=== PATIENT | male | born 1985 | race Caucasian/White ===

== ENCOUNTER 2016-11-27 01:30 | Emergency (ER) | payer OTHER, BC ==
[~2016-11-27] VITALS: Ht 167.6 cm; Wt 102.0 kg
[~2016-11-27 01:30] MED LIST: CIPROFLOXACIN500 M1 PO; HYDROCODON-ACE1 EAC7 PO; METRONIDAZOLE500 MG PO; MOTRIN800 MG PO; PERCOCET 5/31 TABLET PO; SIMVASTATIN20 MG PO; TRAMADOL HCL50 MG PO; TYLENOL EXTRA500 MG PO; TYLENOL REGULA325 MG PO; ZOFRAN8 MG PO; [UNRECOGNIZED DRUG - REMARK] TP; [UNRECOGNIZED DRUG - REMARK] TP
[2016-11-27 02:20] VITALS: BP 157/93
== END 2016-11-27 02:26 | disposition home or self-care (01) ==
LOC: EME 01:30
DX: S91.101A Unspecified open wound of right great toe without damage to nail, initial encounter (principal); X58.XXXA Exposure to other specified factors, initial encounter; Y93.F9 Activity, other caregiving
CPT/HCPCS: 73660; 99281; 99283

== ENCOUNTER 2017-04-14 04:23 | Emergency (ER) | payer OTHER ==
[~2017-04-14] VITALS: Ht 167.6 cm; Wt 98.5 kg
[2017-04-14 06:29] VITALS: BP 131/83
== END 2017-04-14 06:30 | disposition home or self-care (01) ==
LOC: EME 04:23
DX: S66.912A Strain of unspecified muscle, fascia and tendon at wrist and hand level, left hand, initial encounter (principal); X58.XXXA Exposure to other specified factors, initial encounter; Y93.F9 Activity, other caregiving; Y92.531 Health care provider office as the place of occurrence of the external cause; Y99.0 Civilian activity done for income or pay
CPT/HCPCS: 73110; 99281; 99283

== ENCOUNTER 2017-06-05 05:44 | Inpatient (IN) | payer OTHER ==
[~2017-06-05] VITALS: Ht 170.2 cm; Wt 100.7 kg
[2017-06-05 06:10] LABS: HEMATOCRIT 47.5 % (38.0-50.0); MCHC 33.1 G/DL (30.0-36.0); MCV 84.8 FL (86-99); MEAN PLAT.VOLUME 10.3 uM^3 (9.0-12.4); PLATELET COUNT 216 K/uL (156-360); RBC DIS.WIDTH-CV 13.2 % (11.8-14.6); RBC DIS.WIDTH-SD 41.3 % (39-53); WHITE BLOOD COUNT 7.4 K/uL (4.1-10.2)
[2017-06-05 06:24] LABS: CHLORIDE 105 mEq/L (99-109); SODIUM 140 mEq/L (136-147)
[2017-06-05 06:26] LABS: GLUCOSE 96 mg/dL (70-99)
[2017-06-05 06:27] LABS: ANION GAP 11 MEQ/L (2-14)
[2017-06-05 06:28] LABS: TOTAL BILIRUBIN 0.7 mg/dL (0.0-1.0)
[2017-06-05 06:29] LABS: ALKALINE PHOSPHATASE 79 IU/L (3-129)
[2017-06-05 06:30] LABS: GFR ESTIMATE (CALCULATED) > 59 mL/min/
[2017-06-05 06:31] LABS: UREA NITROGEN (BUN) 10 mg/dL (9-23)
[2017-06-05 06:33] LABS: LIPASE 35 U/L (1.0-51.0)
[2017-06-05 07:59] LABS: ADD MIUA? NO; BILIRUBIN NEGATIVE; BLOOD NEGATIVE; GLUCOSE (STRIP) NEGATIVE; KETONES NEGATIVE; LEUKOCYTES NEGATIVE; NITRITE NEGATIVE; PROTEIN (STRIP) NEGATIVE; SPECIFIC GRAVITY 1.009 (1.000-1.030); UCUL ADDED? NO; UROBILINOGEN 0.2 MG/DL (0.2-1.0)
[2017-06-05 08:00] LABS: COLOR LT YELLOW ((YELLOW))
[2017-06-05 16:31] VITALS: BP 128/58
[2017-06-05 19:57] VITALS: BP 129/82
[2017-06-05 23:41] VITALS: BP 121/71
[2017-06-06 03:25] VITALS: BP 119/73
[2017-06-06 07:35] VITALS: BP 105/64
[2017-06-06 10:50] VITALS: BP 110/55
[2017-06-06 16:06] VITALS: BP 139/66
[2017-06-06 20:20] VITALS: BP 105/60
[2017-06-07 00:24] VITALS: BP 104/55
[2017-06-07 06:03] VITALS: BP 123/78
[2017-06-07 07:52] VITALS: BP 116/68
[2017-06-07 08:43] VITALS: BP 130/66
[2017-06-07 21:00] VITALS: BP 140/80
[2017-06-08 00:05] VITALS: BP 133/83
[2017-06-08 05:52] LABS: EOSINOPHIL (%) 0.2 % (0-5); HEMATOCRIT 44.5 % (38.0-50.0); IMMATURE GRANULOCYTE (%) 0.4 % (0.0-0.7); LYMPHOCYTE COUNT 0.8 K/uL (1.0-2.8); MCH 27.5 PG (29.0-34.0); MCHC 32.1 G/DL (30.0-36.0); MCV 85.6 FL (86-99); MEAN PLAT.VOLUME 9.9 uM^3 (9.0-12.4); MONOCYTE COUNT 0.8 K/uL (0-0.8); NEUTROPHIL (%) 83.1 % (45-76); PLATELET COUNT 186 K/uL (156-360); RBC DIS.WIDTH-CV 13.1 % (11.8-14.6); RBC DIS.WIDTH-SD 40.8 % (39-53); WHITE BLOOD COUNT 9.6 K/uL (4.1-10.2)
[2017-06-08 06:18] LABS: ALKALINE PHOSPHATASE 53 IU/L (3-129); ANION GAP 10 MEQ/L (2-14); CHLORIDE 100 MEQ/L (99-109); GFR ESTIMATE (CALCULATED) > 59 mL/min/; GLUCOSE 85 mg/dL (70-99); MAGNESIUM 1.9 mg/dl (1.3-2.7); POTASSIUM 4.5 MEQ/L (3.7-5.4); SAMPLE HEMOLYSIS CHECK 0; SAMPLE ICTERIC CHECK 0; SAMPLE LIPEMIA CHECK 0; SODIUM 139 MEQ/L (136-147); UREA NITROGEN (BUN) 6 mg/dL (9-23)
[2017-06-08 07:08] VITALS: BP 123/74
[2017-06-08 11:06] VITALS: BP 113/71
[2017-06-08 15:40] VITALS: BP 132/79
[2017-06-08 19:28] VITALS: BP 129/68
[2017-06-09 00:12] VITALS: BP 120/58
[2017-06-09 05:04] VITALS: BP 130/70
[2017-06-09 07:21] VITALS: BP 135/89
[2017-06-09 12:59] LABS: HEMATOCRIT 41.4 % (38.0-50.0); MCH 28.2 PG (29.0-34.0); MCHC 33.1 G/DL (30.0-36.0); MCV 85.4 FL (86-99); MEAN PLAT.VOLUME 10.4 uM^3 (9.0-12.4); PLATELET COUNT 173 K/uL (156-360); RBC DIS.WIDTH-SD 40.4 % (39-53); RED BLOOD COUNT 4.85 M/uL (4.00-5.50); WHITE BLOOD COUNT 4.7 K/uL (4.1-10.2)
[2017-06-09 13:35] LABS: ALKALINE PHOSPHATASE 48 IU/L (3-129); ANION GAP 9 MEQ/L (2-14); CHLORIDE 96 MEQ/L (99-109); GFR ESTIMATE (CALCULATED) > 59 mL/min/; POTASSIUM 4.3 MEQ/L (3.7-5.4); SAMPLE HEMOLYSIS CHECK 0; SAMPLE ICTERIC CHECK 1; SAMPLE LIPEMIA CHECK 0; SODIUM 135 MEQ/L (136-147); UREA NITROGEN (BUN) 5 mg/dL (9-23)
[2017-06-09 13:36] LABS: GLUCOSE 117 mg/dL (70-99)
[2017-06-09 14:04] LABS: TOTAL BILIRUBIN 4.1 MG/DL (0.0-1.0)
[2017-06-09 16:11] VITALS: BP 135/63
[2017-06-09 21:36] VITALS: BP 122/79
[2017-06-10 03:11] VITALS: BP 127/55
[2017-06-10 07:14] LABS: TROP-I INTERPRETATION NEGATIVE; TROPONIN-I < 0.01 ng/mL (0.0-0.30)
[2017-06-10 08:00] VITALS: BP 159/70
[2017-06-10] MEDS ORDERED: ZOFRAN4 MG PO (08:23)
[2017-06-10] MEDS ORDERED: PERCOCET 5/31 TABLET PO (08:23)
[2017-06-10 11:26] VITALS: BP 124/70
[2017-06-10 13:59] LABS: MCH 28.9 PG (29.0-34.0); MCHC 34.3 G/DL (30.0-36.0); MCV 84.2 FL (86-99); MEAN PLAT.VOLUME 10.7 uM^3 (9.0-12.4); PLATELET COUNT 203 K/uL (156-360); RBC DIS.WIDTH-CV 13.2 % (11.8-14.6); RBC DIS.WIDTH-SD 40.5 % (39-53); RED BLOOD COUNT 4.99 M/uL (4.00-5.50)
[2017-06-10 14:18] LABS: ANION GAP 12 MEQ/L (2-14); CHLORIDE 95 MEQ/L (99-109); POTASSIUM 3.6 MEQ/L (3.7-5.4); SAMPLE HEMOLYSIS CHECK 0; SAMPLE ICTERIC CHECK 1; SAMPLE LIPEMIA CHECK 0; SODIUM 135 MEQ/L (136-147)
[2017-06-10 14:24] LABS: GFR ESTIMATE (CALCULATED) > 59 mL/min/; GLUCOSE 95 mg/dL (70-99); UREA NITROGEN (BUN) 9 mg/dL (9-23)
[2017-06-10 14:27] LABS: ABS NEUTROPHIL COUNT 3.6; BAND NEUTROPHILS 33.9 % (0-8.0); EOSINOPHIL ABS CT 0.1; EOSINOPHILS 1.7 % (0-5.0); INSTRUMENT ABS NEUTROPHIL CT 3.2 K/uL; LYMPHOCYTES 19.1 % (15.0-45.0); PLAT.SUFFICIENCY ADEQUATE; SEG.NEUTROPHILS 38.3 % (46.0-76.0); SMUDGE CELLS 0.9
[2017-06-10 15:25] VITALS: BP 134/85
== END 2017-06-10 18:03 | disposition home or self-care (01) | DRG 337 ==
LOC: EME 05:44 → 5EAST 12:54 → EDOF 12:54 → ENRESERV 13:13 → EDOF 13:14 → ENRESERV 14:16 → 5EAST 15:27 → ENPENDDIS 06-10 → 5EAST 06-10 18:03
PROVIDERS: Internal Medicine Cardiovascular Disease; Physician Assistant Surgical; Surgery
PROC: 0DNE4ZZ Release Large Intestine, Percutaneous Endoscopic Approach (ICD-10-PCS; principal; 2017-06-07)
PROC: 0DNS4ZZ (ICD-10-PCS; principal; 2017-06-07)
PROC: 0WUF4JZ Supplement Abdominal Wall with Synthetic Substitute, Percutaneous Endoscopic Approach (ICD-10-PCS; principal; 2017-06-07)
PROC: 0DN84ZZ Release Small Intestine, Percutaneous Endoscopic Approach (ICD-10-PCS; principal; 2017-06-07)
DX: K43.0 Incisional hernia with obstruction, without gangrene (principal); R00.0 Tachycardia, unspecified; K66.0 Peritoneal adhesions (postprocedural) (postinfection); F17.200 Nicotine dependence, unspecified, uncomplicated; E66.3 Overweight; Z68.34 Body mass index [BMI] 34.0-34.9, adult
CPT/HCPCS: 71275; 74177; 80048; 80053; 81003; 83690; 83735; 84100; 84484; 85025; 85027; 93005; 94799; 99281; 99285; C1781; J0690; J1170; J1650; J2250; J2270; J2405; J3010; J7030; J7120; S0020

== ENCOUNTER 2017-06-12 21:14 | Inpatient (IN) | payer OTHER ==
[~2017-06-12] VITALS: Ht 170.2 cm; Wt 96.7 kg
[~2017-06-12 21:14] MED LIST changes: +ZOFRAN4 MG PO
[2017-06-12 22:45] LABS: HEMATOCRIT 47.9 % (38.0-50.0); MCH 27.9 PG (29.0-34.0); MCHC 33.8 G/DL (30.0-36.0); MCV 82.6 FL (86-99); RBC DIS.WIDTH-CV 13.4 % (11.8-14.6); RBC DIS.WIDTH-SD 40.3 % (39-53); WHITE BLOOD COUNT 11.2 K/uL (4.1-10.2)
[2017-06-12 22:52] LABS: CHLORIDE 91 mEq/L (99-109); POTASSIUM 3.2 mEq/L (3.7-5.4); SODIUM 137 mEq/L (136-147)
[2017-06-12 22:54] LABS: GLUCOSE 108 mg/dL (70-99)
[2017-06-12 22:55] LABS: ANION GAP 17 MEQ/L (2-14)
[2017-06-12 22:56] LABS: TOTAL BILIRUBIN 1.8 mg/dL (0.0-1.0)
[2017-06-12 22:57] LABS: ALKALINE PHOSPHATASE 79 IU/L (3-129); GFR ESTIMATE (CALCULATED) 50 mL/min/
[2017-06-12 22:58] LABS: UREA NITROGEN (BUN) 14 mg/dL (9-23)
[2017-06-12 23:01] LABS: LIPASE 79 U/L (1.0-51.0)
[2017-06-12 23:21] LABS: MEAN PLAT.VOLUME 10.2 uM^3 (9.0-12.4); PLAT.SUFFICIENCY ADEQUATE
[2017-06-12 23:54] LABS: ADD MIUA? YES; BILIRUBIN NEGATIVE; BLOOD NEGATIVE; COLOR AMBER ((YELLOW)); GLUCOSE (STRIP) NEGATIVE; KETONES NEGATIVE; LEUKOCYTES NEGATIVE; NITRITE NEGATIVE; PROTEIN (STRIP) 100; SPECIFIC GRAVITY 1.029 (1.000-1.030)
[2017-06-13 00:10] LABS: BACTERIA NONE SEEN /HPF; EPITHELIAL CELLS NONE SEEN /HPF; HYALINE CASTS 15-20 /LPF; MUCUS 1+ /LPF; RED BLOOD CELLS 0-5 /HPF (0-5); UCUL ADDED? NO; WHITE BLOOD CELLS 0-5 /HPF (0-5)
[2017-06-13 01:30] LABS: PLATELET COUNT 391 K/uL (156-360)
[2017-06-13 04:52] VITALS: BP 122/69
[2017-06-13 07:51] LABS: ABS NEUTROPHIL COUNT 5.6; ATYPICAL LYMPHOCYTE 4.3 %; BASOPHILS 0.9 %; EOSINOPHIL ABS CT 0.1; EOSINOPHILS 0.9 % (0-5.0); INSTRUMENT ABS NEUTROPHIL CT 4.6 K/uL; LYMPHOCYTES 18.3 % (15.0-45.0); MCH 28.5 PG (29.0-34.0); MCHC 33.9 G/DL (30.0-36.0); MEAN PLAT.VOLUME 10.3 uM^3 (9.0-12.4); METAMYELOCYTES 4.3 %; MYELOCYTES 2.6 %; PLAT.SUFFICIENCY ADEQUATE; PLATELET COUNT 279 K/uL (156-360); RBC DIS.WIDTH-CV 13.6 % (11.8-14.6); RBC DIS.WIDTH-SD 41.3 % (39-53); RED BLOOD COUNT 4.88 M/uL (4.00-5.50); SMUDGE CELLS 12.2; WHITE BLOOD COUNT 9.6 K/uL (4.1-10.2)
[2017-06-13 07:55] LABS: SEG.NEUTROPHILS 58.3 % (46.0-76.0)
[2017-06-13 08:28] VITALS: BP 116/64
[2017-06-13 08:32] LABS: ALKALINE PHOSPHATASE 60 IU/L (3-129); ANION GAP 13 MEQ/L (2-14); CHLORIDE 96 MEQ/L (99-109); GLUCOSE 96 mg/dL (70-99); MAGNESIUM 1.9 mg/dl (1.3-2.7); POTASSIUM 3.5 MEQ/L (3.7-5.4); SAMPLE HEMOLYSIS CHECK 0; SAMPLE ICTERIC CHECK 0; SAMPLE LIPEMIA CHECK 0; SODIUM 137 MEQ/L (136-147); UREA NITROGEN (BUN) 12 mg/dL (9-23)
[2017-06-13 08:38] LABS: GFR ESTIMATE (CALCULATED) > 59 mL/min/; TOTAL BILIRUBIN 1.4 MG/DL (0.0-1.0)
[2017-06-13 16:02] VITALS: BP 118/66
[2017-06-13 19:37] VITALS: BP 117/75
[2017-06-14] VITALS (7 sets, daily range): BP systolic 119–142; BP diastolic 57–78
[2017-06-14 07:12] LABS: ANION GAP 12 MEQ/L (2-14); CHLORIDE 99 MEQ/L (99-109); GFR ESTIMATE (CALCULATED) > 59 mL/min/; GLUCOSE 72 mg/dL (70-99); SAMPLE HEMOLYSIS CHECK 2; SAMPLE ICTERIC CHECK 0; SAMPLE LIPEMIA CHECK 0; SODIUM 136 MEQ/L (136-147); UREA NITROGEN (BUN) 12 mg/dL (9-23)
[2017-06-14 09:01] LABS: HEMATOCRIT 38.6 % (38.0-50.0); MCH 27.3 PG (29.0-34.0); MCHC 32.9 G/DL (30.0-36.0); PLATELET COUNT 269 K/uL (156-360); RBC DIS.WIDTH-CV 13.5 % (11.8-14.6); RBC DIS.WIDTH-SD 40.4 % (39-53); RED BLOOD COUNT 4.65 M/uL (4.00-5.50); WHITE BLOOD COUNT 10.3 K/uL (4.1-10.2)
[2017-06-15 06:45] LABS: MCH 27.5 PG (29.0-34.0); MCHC 33.2 G/DL (30.0-36.0); MCV 82.6 FL (86-99); PLATELET COUNT 263 K/uL (156-360); RBC DIS.WIDTH-CV 13.5 % (11.8-14.6); RBC DIS.WIDTH-SD 40.5 % (39-53); RED BLOOD COUNT 4.48 M/uL (4.00-5.50); WHITE BLOOD COUNT 10.2 K/uL (4.1-10.2)
[2017-06-15 07:09] LABS: ANION GAP 11 MEQ/L (2-14); CHLORIDE 99 MEQ/L (99-109); GFR ESTIMATE (CALCULATED) > 59 mL/min/; GLUCOSE 77 mg/dL (70-99); POTASSIUM 3.7 MEQ/L (3.7-5.4); SAMPLE HEMOLYSIS CHECK 0; SAMPLE ICTERIC CHECK 0; SAMPLE LIPEMIA CHECK 0; SODIUM 139 MEQ/L (136-147); UREA NITROGEN (BUN) 9 mg/dL (9-23)
[2017-06-15 07:30] VITALS: BP 124/75
[2017-06-15 17:41] VITALS: BP 129/85
[2017-06-15 23:04] VITALS: BP 117/74
[2017-06-16 07:36] VITALS: BP 134/80
[2017-06-16 09:35] LABS: HEMATOCRIT 39.3 % (38.0-50.0); MCH 27.6 PG (29.0-34.0); MCHC 33.1 G/DL (30.0-36.0); MCV 83.4 FL (86-99); MEAN PLAT.VOLUME 10.1 uM^3 (9.0-12.4); PLATELET COUNT 278 K/uL (156-360); RBC DIS.WIDTH-CV 13.7 % (11.8-14.6); RBC DIS.WIDTH-SD 42.5 % (39-53); RED BLOOD COUNT 4.71 M/uL (4.00-5.50); WHITE BLOOD COUNT 9.9 K/uL (4.1-10.2)
[2017-06-16 10:03] LABS: ALKALINE PHOSPHATASE 59 IU/L (3-129); ANION GAP 10 MEQ/L (2-14); CHLORIDE 105 MEQ/L (99-109); GFR ESTIMATE (CALCULATED) > 59 mL/min/; MAGNESIUM 1.9 mg/dl (1.3-2.7); POTASSIUM 3.5 MEQ/L (3.7-5.4); SAMPLE HEMOLYSIS CHECK 0; SAMPLE ICTERIC CHECK 0; SAMPLE LIPEMIA CHECK 0; SODIUM 141 MEQ/L (136-147); UREA NITROGEN (BUN) 6 mg/dL (9-23)
[2017-06-16 10:07] LABS: GLUCOSE 106 mg/dL (70-99); TOTAL BILIRUBIN 0.9 MG/DL (0.0-1.0)
[2017-06-16 10:13] LABS: ABS NEUTROPHIL COUNT 6.5; ATYPICAL LYMPHOCYTE 2.7 %; BASOPHILS 0.9 %; EOSINOPHIL ABS CT 0.3; EOSINOPHILS 3.5 % (0-5.0); INSTRUMENT ABS NEUTROPHIL CT 5.4 K/uL; LYMPHOCYTES 20.3 % (15.0-45.0); METAMYELOCYTES 0.9 %; MYELOCYTES 1.8 %; PLAT.SUFFICIENCY ADEQUATE; SEG.NEUTROPHILS 65.5 % (46.0-76.0)
[2017-06-16] MEDS ORDERED: COLACE100 MG PO (10:50)
[2017-06-16] MEDS ORDERED: PERCOCET 5/31 TABLET PO (10:50)
[2017-06-16 15:21] VITALS: BP 127/85
== END 2017-06-16 17:30 | disposition home or self-care (01) | DRG 389 ==
LOC: EME 21:14 → EDOF 06-13 02:03 → 2EASTP 06-13 02:03 → ENRESERV 06-13 02:07 → 2EASTP 06-13 04:43 → ENPENDDIS 06-16 → 2EASTP 06-16 17:30
PROVIDERS: Physician Assistant Surgical; Surgery
DX: K56.5 Intestinal adhesions [bands] with obstruction (postinfection) (principal); N17.9 Acute kidney failure, unspecified; E86.0 Dehydration; E87.6 Hypokalemia; F17.210 Nicotine dependence, cigarettes, uncomplicated; F32.9 Major depressive disorder, single episode, unspecified; F41.9 Anxiety disorder, unspecified; Z90.49 Acquired absence of other specified parts of digestive tract
CPT/HCPCS: 71010; 74020; 74177; 80048; 80053; 81003; 83605; 83690; 83735; 84100; 85025; 85027; 99281; 99285; J1170; J1650; J1885; J2405; J3010; J3480; J7120

== ENCOUNTER 2017-07-20 05:03 | Emergency (ER) | payer OTHER ==
[~2017-07-20] VITALS: Ht 170.2 cm; Wt 98.7 kg
[~2017-07-20 05:03] MED LIST changes: +COLACE100 MG PO
[2017-07-20 05:55] LABS: HEMATOCRIT 44.8 % (38.0-50.0); MCH 27.3 PG (29.0-34.0); MCHC 32.1 G/DL (30.0-36.0); MEAN PLAT.VOLUME 10.4 uM^3 (9.0-12.4); PLATELET COUNT 213 K/uL (156-360); RBC DIS.WIDTH-CV 13.4 % (11.8-14.6); RBC DIS.WIDTH-SD 41.6 % (39-53); RED BLOOD COUNT 5.27 M/uL (4.00-5.50); WHITE BLOOD COUNT 6.6 K/uL (4.1-10.2)
[2017-07-20 06:06] LABS: CHLORIDE 105 mEq/L (99-109); SODIUM 138 mEq/L (136-147)
[2017-07-20 06:08] LABS: GLUCOSE 94 mg/dL (70-99)
[2017-07-20 06:09] LABS: ANION GAP 12 MEQ/L (2-14)
[2017-07-20 06:10] LABS: TOTAL BILIRUBIN 0.4 mg/dL (0.0-1.0)
[2017-07-20 06:11] LABS: ALKALINE PHOSPHATASE 80 IU/L (3-129)
[2017-07-20 06:12] LABS: GFR ESTIMATE (CALCULATED) > 59 mL/min/
[2017-07-20 06:13] LABS: UREA NITROGEN (BUN) 6 mg/dL (9-23)
[2017-07-20 06:15] LABS: LIPASE 65 U/L (1.0-51.0)
[2017-07-20] MEDS ORDERED: BENTYL20 MG PO (09:04)
[2017-07-20 09:13] VITALS: BP 141/73
== END 2017-07-20 09:30 | disposition home or self-care (01) ==
LOC: EME 05:03
PROVIDERS: Physician Assistant
DX: R10.10 Upper abdominal pain, unspecified (principal); R11.0 Nausea; Z98.890 Other specified postprocedural states; Z87.891 Personal history of nicotine dependence
CPT/HCPCS: 74177; 80053; 83690; 85027; 99281; 99285; J2405; J3010; J7030

== ENCOUNTER 2017-08-02 03:35 | Emergency (ER) | payer OTHER ==
[~2017-08-02] VITALS: Ht 170.2 cm; Wt 98.8 kg
[~2017-08-02 03:35] MED LIST changes: +BENTYL20 MG PO
[2017-08-02 04:21] LABS: HEMATOCRIT 47.1 % (38.0-50.0); MCH 27.7 PG (29.0-34.0); MCHC 32.7 G/DL (30.0-36.0); MCV 84.7 FL (86-99); MEAN PLAT.VOLUME 10.5 uM^3 (9.0-12.4); PLATELET COUNT 249 K/uL (156-360); RBC DIS.WIDTH-CV 13.5 % (11.8-14.6); RBC DIS.WIDTH-SD 41.5 % (39-53); RED BLOOD COUNT 5.56 M/uL (4.00-5.50); WHITE BLOOD COUNT 6.6 K/uL (4.1-10.2)
[2017-08-02 04:39] LABS: CHLORIDE 104 mEq/L (99-109); POTASSIUM 3.8 mEq/L (3.7-5.4); SODIUM 142 mEq/L (136-147)
[2017-08-02 04:41] LABS: GLUCOSE 96 mg/dL (70-99)
[2017-08-02 04:42] LABS: ANION GAP 12 MEQ/L (2-14)
[2017-08-02 04:43] LABS: TOTAL BILIRUBIN 0.6 mg/dL (0.0-1.0)
[2017-08-02 04:44] LABS: ALKALINE PHOSPHATASE 74 IU/L (3-129)
[2017-08-02 04:45] LABS: GFR ESTIMATE (CALCULATED) > 59 mL/min/
[2017-08-02 04:46] LABS: UREA NITROGEN (BUN) 7 mg/dL (9-23)
[2017-08-02 05:13] VITALS: BP 135/78
== END 2017-08-02 05:14 | disposition home or self-care (01) ==
LOC: EME 03:35 → EXP 03:35
DX: R10.9 Unspecified abdominal pain (principal); Z98.890 Other specified postprocedural states; Z90.49 Acquired absence of other specified parts of digestive tract; Z87.891 Personal history of nicotine dependence
CPT/HCPCS: 74176; 80053; 81003; 85027; 99281; 99283